=== PATIENT | male | born 1945 | race Caucasian/White ===

== ENCOUNTER 2016-08-25 09:49 | Emergency (ER) | payer MEDICARE, OTHER | END 2016-08-25 12:30 | disposition home or self-care (01) | LOC: ER 09:49 | DX: K92.2 Gastrointestinal hemorrhage, unspecified (principal); E87.6 Hypokalemia; L03.90 Cellulitis, unspecified; I10 Essential (primary) hypertension; Z90.89 Acquired absence of other organs | CPT/HCPCS: 36415; 87502; Q9967 ==